=== PATIENT | female | born 1935 | race Caucasian/White ===

== ENCOUNTER 2022-02-28 16:02 | Outpatient (CLI) | payer MEDICARE, SELFPAY ==
--- NOTE | ~2022-02-28 | XR_ITS ---
XR ankle LT min 3V, XR foot LT min 3V 02/28/2022 16:20 Indication: Status post recent fall. Procedure: 4 views left ankle and 4 views left foot Comparison: No prior studies for comparison. Findings: There is a mildly displaced oblique distal fibular fracture. There are are degenerative francisco nges of the talonavicular joint. There is a corticated ossific density just lateral to the cuboid, li schuyler related to remote trauma given the corticated margins. There is an osteochondral defect medial m argin of the talar dome. Lisfranc joint intact. There is moderate lateral soft tissue swelling adjace nt to the fibula. Impression: 1: Oblique mildly displaced distal fibular fracture. 2: Osteochondral defect medial margin of the talar dome. 2: Corticated ossific density lateral to the cuboid, likely related to remote trauma. Reviewed, dictated and finalized at location A. Impression: 1: Oblique mildly displaced distal fibular fracture. 2: Osteochondral defect medial margin of the talar dome. 2: Corticated ossific density lateral to the cuboid, likely related to remote trauma. Impression: 1: Oblique mildly displaced distal fibular fracture. 2: Osteochondral defect medial margin of the talar dome. 2: Corticated ossific density lateral to the cuboid, likely related to remote trauma.
== END 2022-02-28 16:03 | disposition home or self-care (01) ==
PROVIDERS: PCP Family Medicine; Visit Provider Family Medicine
DX: S82.432A Displaced oblique fracture of shaft of left fibula, initial encounter for closed fracture (principal); X58.XXXA Exposure to other specified factors, initial encounter
CPT/HCPCS: 73610; 73630